=== PATIENT | male | born 1935 | race Caucasian/White ===

== ENCOUNTER 2021-01-09 13:36 | Day surgery (SDC) | payer MEDICARE, OTHER ==
[~2021-01-09] VITALS: Ht 170.2 cm; Wt 78.7 kg
--- NOTE | 2021-01-09 16:17 | NUR ---
01/09/21 1617 Emerald Rios 1600- 12.5MG DEXTROSE 50% GIVEN IV PER DR MCKEON ORDERS FOR CBG OF 70. PT STATED HE FELT LIKE HIS "SUGAR LEVELS ARE LOW." PT IS NOW RESTING WITH WARM BLANKETS AND CALL LIGHT IN REACH. PT STATES HE IS FEELING BETTER NOW.
== END 2021-01-09 18:22 | disposition home or self-care (01) ==
LOC: ORSCSDS 13:36
PROVIDERS: Orthopaedic Surgery
PROC: 01N50ZZ Release Median Nerve, Open Approach (ICD-10-PCS; principal; 2021-01-09 16:30)
DX: G56.01 Carpal tunnel syndrome, right upper limb (principal); I10 Essential (primary) hypertension; I25.10 Atherosclerotic heart disease of native coronary artery without angina pectoris; G47.33 Obstructive sleep apnea (adult) (pediatric); E11.9 Type 2 diabetes mellitus without complications; N18.9 Chronic kidney disease, unspecified; Z79.84 Long term (current) use of oral hypoglycemic drugs; Z79.899 Other long term (current) drug therapy
CPT/HCPCS: 82947; J0690; J1885; J2704; J3010; J7120; J7799

== ENCOUNTER 2022-02-26 05:27 | Day surgery (SDC) | payer MEDICARE, OTHER ==
[~2022-02-26 05:27] MED LIST: ALLO300 PO; AMLO10 PO; Aspir 8181 MG PO; CHLO25B PO; DOXA4 PO; FINA5 PO; GLIP5 PO; LOSA50 PO; OMEP20ER PO; TAMS.4ER PO; Zocor20 MG PO
[2022-02-27] MEDS ORDERED: FURO40 PO (11:18)
== END 2022-02-26 08:45 | disposition home or self-care (01) ==
LOC: ORSCSDS 05:27
DX: G56.02 Carpal tunnel syndrome, left upper limb (principal); Z53.9 Procedure and treatment not carried out, unspecified reason
CPT/HCPCS: J2795; J7120

== ENCOUNTER → 2022-10-25 | Outpatient (CLI) | payer MEDICARE, OTHER ==
[~2022-10-25] MED LIST changes: +FURO40 PO
[2022-10-25 12:16] LABS: Creatinine Urine 81.9 mg/dL (27.00-270.00); Protein, Urine Quantitative 30.2 mg/dL (0.0-11.9)
== END ==
LOC: LAB 08:00 → LAB SHORT 08:00
PROVIDERS: Internal Medicine Nephrology
DX: N18.30 Chronic kidney disease, stage 3 unspecified (principal); D63.1 Anemia in chronic kidney disease; E55.9 Vitamin D deficiency, unspecified; E27.0 Other adrenocortical overactivity; N40.1 Benign prostatic hyperplasia with lower urinary tract symptoms; R76.9 Abnormal immunological finding in serum, unspecified; R94.5 Abnormal results of liver function studies; R94.6 Abnormal results of thyroid function studies
CPT/HCPCS: 81050; 82043; 82570; 84156

== ENCOUNTER 2022-11-21 06:47 | Day surgery (SDC) | payer OTHER ==
[~2022-11-21] VITALS: Ht 170.2 cm; Wt 70.2 kg
[2022-11-21] MEDS ORDERED: ATOR20 (07:38)
[2022-11-21] MEDS ORDERED: THERA-D2000 UNIT PO (07:40)
[2022-11-21] MEDS ORDERED: HYDRA50 PO (07:41)
[2022-11-21] MEDS ORDERED: TOPROL XL25 MG PO (07:43)
--- NOTE | 2022-11-21 07:52 | NUR ---
11/21/22 0752 Shaniqua Sullivan [id number] AT [phone]
[2022-11-21 09:23] VITALS: BP 130/66
== END 2022-11-21 09:35 | disposition home or self-care (01) ==
LOC: ORSCSDS 06:47
PROVIDERS: Student in an Organized Health Care Education/Training Program
PROC: 08RK3JZ Replacement of Left Lens with Synthetic Substitute, Percutaneous Approach (ICD-10-PCS; principal; 2022-11-21 08:30)
DX: E11.36 Type 2 diabetes mellitus with diabetic cataract (principal); H25.13 Age-related nuclear cataract, bilateral; H52.202 Unspecified astigmatism, left eye; H21.81 Floppy iris syndrome; I10 Essential (primary) hypertension; G47.33 Obstructive sleep apnea (adult) (pediatric); K21.9 Gastro-esophageal reflux disease without esophagitis; Z79.4 Long term (current) use of insulin; I25.10 Atherosclerotic heart disease of native coronary artery without angina pectoris; Z79.899 Other long term (current) drug therapy; Z79.82 Long term (current) use of aspirin
CPT/HCPCS: 82947; J2250; J3010; J7040; V2632

== ENCOUNTER 2022-12-05 07:01 | Day surgery (SDC) | payer OTHER ==
[~2022-12-05] VITALS: Ht 170.2 cm; Wt 70.3 kg
[~2022-12-05 07:01] MED LIST changes: +ATOR20; +HYDRA50 PO; +THERA-D2000 UNIT PO; +TOPROL XL25 MG PO
--- NOTE | 2022-12-05 07:48 | NUR ---
12/05/22 0748 Shaniqua Sullivan AT [address] AT [phone]
[2022-12-05 09:05] VITALS: BP 150/66
== END 2022-12-05 09:15 | disposition home or self-care (01) ==
LOC: ORSCSDS 07:01
PROVIDERS: Student in an Organized Health Care Education/Training Program
PROC: 08RJ3JZ Replacement of Right Lens with Synthetic Substitute, Percutaneous Approach (ICD-10-PCS; principal; 2022-12-05 08:30)
DX: H25.11 Age-related nuclear cataract, right eye (principal); Z96.1 Presence of intraocular lens; H52.201 Unspecified astigmatism, right eye; H21.81 Floppy iris syndrome; I10 Essential (primary) hypertension; E11.9 Type 2 diabetes mellitus without complications; G47.33 Obstructive sleep apnea (adult) (pediatric); K21.9 Gastro-esophageal reflux disease without esophagitis; I50.9 Heart failure, unspecified; Z79.899 Other long term (current) drug therapy
CPT/HCPCS: 82947; J3010; J7040; V2632

== ENCOUNTER 2024-02-24 10:30 | Day surgery (SDC) | payer MEDICARE, OTHER ==
[~2024-02-24] VITALS: Ht 170.2 cm; Wt 76.8 kg
[~2024-02-24 10:30] MED LIST changes: +AMLODIPINE BESY10 MG PO; +ASPIRIN REGIMEN81 MG PO; +ENTRESTO 24 MG1 EACH PO; +FLOMAX0.4 MG PO; +INSDET100 SC; +OMEPRAZOLE20 M2 PO; +SENNA LAXATIVE8.6 MG PO; +Sodium Bicarb 8.4% 1 MEQ/ML 50 ML Vial ONE; +VITAMIN D310 MC4
[2024-02-24] MEDS ORDERED: CeFAZolin Sodium 2,000 MG VIAL ONE (10:38)
[2024-02-24] MEDS ORDERED: NS 50 ML IV ONE (10:38)
[2024-02-24] MEDS ORDERED: NS 500 ML IV ONE (10:44)
[2024-02-24 11:49] VITALS: BP 139/69
== END 2024-02-24 12:14 | disposition home or self-care (01) ==
LOC: ORSCSDS 10:30
PROVIDERS: Orthopaedic Surgery
PROC: 01N50ZZ Release Median Nerve, Open Approach (ICD-10-PCS; principal; 2024-02-24 09:45)
DX: G56.02 Carpal tunnel syndrome, left upper limb (principal); I12.9 Hypertensive chronic kidney disease with stage 1 through stage 4 chronic kidney disease, or unspecified chronic kidney disease; E11.22 Type 2 diabetes mellitus with diabetic chronic kidney disease; G47.33 Obstructive sleep apnea (adult) (pediatric); N18.30 Chronic kidney disease, stage 3 unspecified; Z95.1 Presence of aortocoronary bypass graft; Z79.82 Long term (current) use of aspirin; Z79.899 Other long term (current) drug therapy
CPT/HCPCS: 82947; J0690